=== PATIENT | male | born 2000 | race Caucasian/White ===

== ENCOUNTER 2020-10-29 00:27 | Emergency (ER) | payer SELFPAY ==
--- NOTE | ~2020-10-29 | XR_ITS ---
EXAMINATION: XR FOOT, LEFT CLINICAL INFORMATION: Pain and swelling. COMPARISON: None TECHNIQUE: AP, lateral, and oblique views of the left foot. FINDINGS: 2 screws transfix the medial malleolus. No fracture or dislocation. Alignment is anatomic. Joint spaces are maintained. Small osteophytes at the first metatarsophalangeal joint. The soft tissues appear unremarkable. XR/XR foot LT min 3V IMPRESSION: No acute osseous abnormality.
--- NOTE | ~2020-10-29 | XR_ITS ---
EXAMINATION: XR ANKLE, LEFT CLINICAL INFORMATION: Ankle pain and swelling COMPARISON: Ankle radiographs 06/29/2013, report only TECHNIQUE: AP, lateral, and mortise views of the left ankle. FINDINGS: 2 screws are present in the medial malleolus which were also described in the 2014 exam. The the ankle mortise appears stable. On the AP radiograph, an ill-defined bony density is seen laterally but a donor site is not detected. This is in an area of soft tissue swelling. Conceivably this could represent a fracture. If tenderness is present in this region, radiographs of the foot may be useful for further evaluation. No other suspected acute fractures are seen. No joint effusions are detected. XR/XR ankle LT min 3V IMPRESSION: Stable appearing ankle and medial malleolus hardware. Question of small avulsion fracture. As described above
[2020-10-29 00:34] VITALS: BP 146/107; PULSE 103; RESP 20; TEMP 36.6; O2SAT 97; BMI 33.5
--- NOTE | 2020-10-29 01:26 | ED_ITS ---
HPI - Extremity Injury (Lower) General Chief Complaint: Extremity Injury, Lower Stated Complaint: ankle pain Time Seen by Provider: 10/29/20 00:40 Source: patient Mode of arrival: ambulatory History of Present Illness HPI Narrative: 20-year-old male presents after having stepped backwards off of a brick steps and states that he inverted the left foot and developed pain and thought he heard a pop afterwards. He notes that swelling did occur, this event happened 3 days ago but patient presents today for persistent pain, redness and swelling. Related Data Allergies Allergy/AdvReac Type Severity Reaction Status Date / Time No Known Allergies Allergy Verified 10/29/20 00:34 Review of Systems Review of Systems: Pertinent positives and negatives as stated in HPI 10 point review of systems is otherwise negative. PMFSH Past Medical History Source: nursing notes reviewed Social History Social History Smoking Status: Unknown if ever smoked Use of substances other than those prescribed or required for medical reasons: No Advance Directives: No Physical Exam Vital Signs: Vital Signs: Last Vital Signs Temp 97.9 F 10/29/20 00:34 Pulse 103 H 10/29/20 00:34 Resp 20 10/29/20 00:34 BP 146/107 H 10/29/20 00:34 Pulse Ox 97 10/29/20 00:34 Body Mass Index 33.5 VITAL SIGNS: Reviewed. GENERAL: Well developed, well nourished, in no acute distress. HEAD: Normocephalic/atraumatic EYES: PERRLA, EOMI OROPHARYNX: no oral lesions noted, posterior pharynx clear NECK: Supple, no adenopathy LUNGS: Normal breath sounds. No adventitious sounds or accessory muscle use. SpO2<97> CARDIOVASCULAR: Regular rate and rhythm without noted murmurs ABDOMEN: Soft, non-tender, non-distended with bowel sounds. LEFT FOOT: Mild swelling over the lateral dorsal aspect of the foot with good capillary refill and palpable DP/PT, mild pain on palpation over the lateral malleolus NEUROLOGIC: Alert and oriented x 4. Course Course Course Narrative: 20-year-old male with history and clinical presentation suggestive ankle sprain, fracture. On review of all investigations there is no evidence of fracture or dislocation. Patient was provided with combination analgesics and placed in an Lv wrap. On re-evaluation patient reports good improvement of his pain. He was discharged in stable condition. Discharge Plan Discharge Clinical Impression: Ankle sprain Patient Disposition: Home, Self-Care Instructions: Ankle Sprain (ED), R.I.C.E. Treatment (ED) Additional Instructions: Follow-up with your primary care provider in the next 2-3 days for re- evaluation. Recommend using [id number] Tylenol/ibuprofen as needed for pain control. Return the emergency department for any acute worsening of symptoms. Referrals: Physician,None [Primary Care Provider] - 2 days Interventions: ED Discharge Assessment Last Done: 10/29/20 01:49 Discharge Date/Time: 10/29/20 02:16
== END 2020-10-29 02:16 | disposition home or self-care (01) ==
PROVIDERS: Emergency Provider Student in an Organized Health Care Education/Training Program
DX: S93.402A Sprain of unspecified ligament of left ankle, initial encounter (principal); W10.8XXA Fall (on) (from) other stairs and steps, initial encounter; Y93.89 Activity, other specified; Y92.018 Other place in single-family (private) house as the place of occurrence of the external cause; Y99.9 Unspecified external cause status
CPT/HCPCS: 73610; 73630; 99283; 99284